=== PATIENT | male | born 1980 ===

== ENCOUNTER 2016-08-27 09:47 | Inpatient (IN) | payer BC, OTHER ==
[~2016-08-27] VITALS: Ht 154.9 cm; Wt 65.8 kg
[2016-08-30 12:13] LABS: *AMPHETAMINE, URINE POSITIVE (NEGATIVE); *BARBITURATE, URINE NEGATIVE (NEGATIVE); *CANNABINOID, URINE NEGATIVE (NEGATIVE); *COCCAINE, URINE NEGATIVE (NEGATIVE); *OPIATE, URINE NEGATIVE (NEGATIVE); *PHENCYCLIDINE SCREEN,URINE NEGATIVE (NEGATIVE)
[2016-08-30 12:29] VITALS: BP 120/66
[2016-08-30] MEDS ORDERED: DICYCLOMINE HCL 20 MG TABLET PO PRN (12:30)
[2016-08-30] MEDS ORDERED: LORAZEPAM 1 MG TABLET PO PRN ×2 (12:30)
[2016-08-30] MEDS ORDERED: MAGNESIUM HYDROXIDE 30 ML LIQUID UDC PO PRN (12:30)
[2016-08-30] MEDS ORDERED: THIAMINE HCL 200 MG/2 ML VIAL IM ONE (12:30)
[2016-08-30] MEDS ORDERED: LORAZEPAM 2 MG/1 ML VIAL IM PRN (12:30)
[2016-08-30] MEDS ORDERED: HYDROXYZINE PAMOATE 25 MG CAPSULE PO PRN (12:30)
[2016-08-30] MEDS ORDERED: CLONIDINE HCL 0.1 MG TABLET PO PRN (12:30)
[2016-08-30] MEDS ORDERED: ONDANSETRON ODT 4 MG TAB.RAPDIS SL PRN (12:30)
[2016-08-30] MEDS ORDERED: PROMETHAZINE HCL 25 MG/1 ML VIAL IM PRN (12:30)
[2016-08-30] MEDS ORDERED: ACETAMINOPHEN 325 MG TABLET PO PRN (12:30)
[2016-08-30] MEDS ORDERED: MIRALAX 17 GM POWD.PACK PO PRN (12:30)
[2016-08-30] MEDS ORDERED: LOPERAMIDE HCL 2 MG CAPSULE PO PRN ×2 (12:30)
[2016-08-30] MEDS ORDERED: MAG HYDROX/AL HYDROX/SIMETH 30 ML LIQUID UDC PO PRN (12:30)
--- NOTE | 2016-08-30 13:00 | NUR ---
ADMISSION NOTE VS: BP: 120/66, HR:85, SpO2: 98%, RR: 16, Temp: 97.9 Pain: 6/10 backache/headache Height: 5'2" Weight: 145 LB Allergies: ALEX Pt is a 35 y/o male admitted to [facility] on 08/30/16 at 1200. Pt is under the care of Dr. Sr for ETOH and Methamphetamine dependence. Pt denies suicidal and homicidal ideations at this time. Pt denies being hospitalized in the past 30 days. Pt denies Chest Pain and SOB. Pt reports no active medication/prescriptions. Upon assessment pt's skin is. CIWA is 17 upon admission. NKA, A/Ox4 and able to answer questions necessary for the admission process. Pt is Full Code. VS WNL, Regular Diet. Reports history of withdrawal induced seizures, last seizure being 1 week ago. Pt denies having a PCP. Breathing is even and unlabored, SpO2 is 98% on RA. Pt ambulates with a steady gait, pt looks restless, states he hasn't slept in a few days and has increased body movements. Pt has difficulty staying asleep. Pt reports Hx of treatment in 2007 at [facility] in [facility], and was sober from 2007- Jul 2016. Pt reports living alone. Pt refuses to get the Flu vaccine and PNA vaccine at this time. Pt reports smoking 2-[address] Sr has been notified, and has placed client on a 5 day Ativan taper. All needs have been met. Pt has been oriented to the room and the unit. All safety measures in place per hospital policy. Bed in lowest position, side rails up x2 and padded, call-light within reach. Will continue to monitor. Substance Abuse: ETOH: 18 cans of 16 oz beers daily for 1 froylan, last drink was "1 shot of whiskey" 08/30/16 at 0700 Crystal Meth: "$20 worth" for 1 month, last used on 08/29/16 at 1800.
[2016-08-30 13:19] VITALS: BP 120/66
[2016-08-30] MEDS: LORAZEPAM 1 MG TABLET PO SCH ×3 (13:23→21:22)
[2016-08-30] MEDS: IBUPROFEN 400 MG TABLET PO PRN (13:24)
[2016-08-30 17:32] LABS: BASOPHILS % (AUTO) 0.4 % (0.0-2.0); EOSINOPHILS # (AUTO) 0.1 K/uL (0.0-0.7); EOSINOPHILS % (AUTO) 1.6 % (0.0-7.0); HEMATOCRIT 41.5 % (40.0-50.0); HEMOGLOBIN 13.8 g/dL (14.0-18.0); LYMPHOCYTES # (AUTO) 2.7 K/uL (0.8-4.8); LYMPHOCYTES % (AUTO) 35.7 % (20.5-51.5); MEAN CORPUSCULAR HEMOGLOBIN 27.9 uug (27.0-31.0); MEAN CORPUSCULAR HGB CONC 33 g/dL (32.0-37.0); MEAN CORPUSCULAR VOLUME 84.1 fL (82.0-92.0); MONOCYTES # (AUTO) 0.5 K/uL (0.1-1.30); MONOCYTES % (AUTO) 6.1 % (0.0-11.0); NEUTROPHILS # (AUTO) 4.2 K/uL (1.8-8.9); NEUTROPHILS % (AUTO) 56.2 % (38.5-71.5); PLATELET COUNT (AUTO) 324 K/uL (150-450); RED BLOOD CELL COUNT(AUTO) 4.94 MIL/uL (4.70-6.10); RED CELL DISTRIBUTION WIDTH 12.3 % (11.5-14.5); WHITE BLOOD COUNT (AUTO) 7.5 K/uL (4.0-11.2)
[2016-08-30 17:50] LABS: ALANINE AMINOTRANSFERASE 31 U/L (16-63); ALBUMIN 3.4 g/dL (3.4-5.0); ALKALINE PHOSPHATASE 126 U/L (50-136); AMYLASE 34 U/L (25-115); ASPARTATE AMINOTRANSFERASE 20 U/L (15-37); BILIRUBIN,TOTAL 0.3 mg/dL (0.2-1.0); CALCIUM 8.8 mg/dL (8.5-10.1); CARBON DIOXIDE 24 mmol/L (21-32); CHLORIDE 100 mmol/L (98-107); GFR 84 mL/min (>60); LIPASE 148 U/L (73-393); POTASSIUM 3.9 mmol/L (3.5-5.1); SODIUM SERUM 137 mmol/L (136-145); TOTAL PROTEIN, SERUM 6.8 g/dL (6.4-8.2); UREA NITROGEN, BLOOD 14 mg/dL (7-18)
[2016-08-30 17:51] LABS: GLUCOSE 388 mg/dL (74-106)
[2016-08-30] MEDS ORDERED: INSULIN REGULAR, HUMAN 300 UNIT/3 ML VIAL SQ ONE (18:00)
[2016-08-30] MEDS ORDERED: INSULIN REGULAR, HUMAN 300 UNITS/3 ML VIAL SQ PRN (18:00)
[2016-08-30] MEDS ORDERED: DEXTROSE 50% 50 ML DISP.SYRIN IV PRN (18:00)
[2016-08-30 18:03] LABS: ETHANOL < 3 MG/DL (0-0)
[2016-08-30 18:12] VITALS: BP 116/70
--- NOTE | 2016-08-30 18:20 | NUR ---
COMMUNICATION/CRITICAL VALUE Critical lab value for glucose of 388 mg/dl. Dr. Sr made aware, order for 6 units of regular insulin once. Pt started on moderate sliding scale with accu check AC/HS.
[2016-08-30 18:34] LABS: THYROID STIMULATING HORMONE 0.849 mIU/mL (0.358-3.740)
--- NOTE | 2016-08-30 18:34 | NUR ---
PT EDUCATION Pt education provided on importance of diet compliance, and s/s of hyper/hypoglycemia. Insulin 6 units administered as ordered. Pt has dinner tray at bedside, and states he will eat it. Pt encouraged to make healthier food choice decisions and notify nurse of any changes.
[2016-08-30 18:46] LABS: HIV-1/2 ANTIBODY NON REACTIVE (NONREACTIVE)
[2016-08-30 18:47] LABS: HIV-1 p24 ANTIGEN NON REACTIVE (NONREACTIVE)
--- NOTE | 2016-08-30 19:10 | NUR ---
START OF SHIFT NOTE Pt. is 35 year old male patient admitted on 08/30/16 for ETOH and Crystal meth dependence. Denies medical history. Reports withdrawal induced seizures, last one was one week ago. NKA, Full Code, Diet will be re-evaluated on 08/31/2016, is on regular diet right now. Pt has been placed on a 5 day Ativan taper on 08/30/2016 and is tolerating well. Pt is A/O x4. RR even and unlabored. Per Dr. Sr order also started patient on AC/HS accu check with sliding scale. Pt is aware and verbalizes understanding. Pt education provided on importance of compliance. Most recent CIWA 7. All safety measures in place per hospital policy. Bed in lowest position, side rails up x2, call-light within reach. Will continue to monitor closely and offer help.
--- NOTE | 2016-08-30 19:15 | NUR ---
D/C NOTE Endorsed to overnight babysitter nurse. 35 year old male patient admitted on 08/30/16 for ETOH and Crystal meth dependence. Pt is A/O x4. Denies medical history. Reports withdrawal induced seizures, last one was one week ago. Pt remains seizure free throughout shift. Denies allergies. Pt has been placed on a 5 day Ativan taper and is tolerating well. RR even and unlabored. Lab test revealed glucose of 388. Per Dr. Sr order, 6 units of insulin one time provided. MD also started patient on AC/HS accu check with sliding scale. Pt is aware and verbalizes understanding. Pt education provided on importance of compliance. Most recent CIWA 7. V/S remain WNL and stable. Safety precautions are in place, side rails up x2 and padded, bed is locked and in lowest position. weatherization and housing inspector to continue to monitor.
[2016-08-30 20:00] VITALS: BP 100/67
--- NOTE | 2016-08-30 21:00 | NUR ---
INSULIN 10 Units SQ per Sliding Scale [id number]. Insulin Humulin 10 Units SQ given per SS as ordered.Safety measures in place : bed on lowest position with side rails x2 up for safety, call light within reach. Will continue to monitor closely and offer help.
[2016-08-30] MEDS: GABAPENTIN 300 MG CAPSULE PO SCH (21:22)
[2016-08-30] MEDS: BLOOD SUGAR DIAGNOSTIC 1 EACH STRIP VI SCH (21:38)
[2016-08-31] VITALS: BP 118/75
--- NOTE | 2016-08-31 06:57 | NUR ---
END OF SHIFT NOTE : Pt. is 35 year old male patient admitted on 08/30/16 for ETOH and Crystal meth dependence. Denies medical history. Reports withdrawal induced seizures, last one was one week ago. NKA, Full Code, Diet will be re-evaluated on 08/31/2016, is on regular diet right now. Pt has been placed on a 5 day Ativan taper on 08/30/2016 and is tolerating well. Pt is A/O x4. RR even and unlabored. Per Dr. Sr order also started patient on AC/HS accu check with sliding scale. Pt remains compliant with the treatment plan. Pt denies nausea, vomiting and diarrhea. PRN was Insulin SQ was given as ordered during my shift. V/S remain WNL. RR=16, even and unlabored, lungs clear upon auscultation, abdomen soft and non- distended. Pt denies nausea, vomiting and diarrhea. LAST CIWA= 3 at 0400 , INTAKE= 300 ml, voided x 1, slept 11 hours. Safety measures in place : bed on lowest position with side rails x2 up for safety, call light within reach. Will continue to monitor closely and offer help.
--- NOTE | 2016-08-31 07:10 | NUR ---
Start of Shift Report from the night nurse: pt is a Pt is 35 y.o male here for EtoH r/t eighteen 16oz cans per day and Crystal Meth $20.00 worth; 5 day Ativan taper ordered. Pt is a full code, NKA, regular diet, fall and seizure precautions. Hhx: seizure 1 week ago r/t Etoh w/d's and relapse. Pt is dx'd while here with DM-2 and has a Humulin R insulin order with moderate sliding scale AC/HS with last BG 353 with 10 Units given by the night nurse. V/S stable. Skin is intact. Last CIWA 3. No new orders endorsed by the night nurse. Pt is in room asleep. Will cont. to monitor the pt.
[2016-08-31 07:27] LABS: CALCIUM 8.8 mg/dL (8.5-10.1); CARBON DIOXIDE 30 mmol/L (21-32); CHLORIDE 104 mmol/L (98-107); CREATININE 0.6 mg/dL (0.6-1.3); GFR > 130 mL/min (>60); GLUCOSE 255 mg/dL (74-106); POTASSIUM 4.2 mmol/L (3.5-5.1); SODIUM SERUM 140 mmol/L (136-145); UREA NITROGEN, BLOOD 18 mg/dL (7-18)
[2016-08-31 08:00] VITALS: BP 105/66
[2016-08-31] MEDS: BLOOD SUGAR DIAGNOSTIC 1 EACH STRIP VI SCH ×4 (08:12→20:29)
[2016-08-31] MEDS: INSULIN REGULAR, HUMAN 300 UNIT/3 ML VIAL SQ PRN ×3 (08:14→17:25)
[2016-08-31] MEDS: THIAMINE HCL 100 MG TABLET PO SCH (08:40)
[2016-08-31] MEDS: GABAPENTIN 300 MG CAPSULE PO SCH ×2 (08:40→21:03)
[2016-08-31] MEDS: FOLIC ACID 1 MG TABLET PO SCH (08:40)
[2016-08-31] MEDS: LORAZEPAM 1 MG TABLET PO SCH ×3 (08:40→21:03)
[2016-08-31] MEDS ORDERED: TUBERCULIN,PURIF.PROT.DERIV. 5 TU/0.1 ML TEST ID ONE (09:00)
[2016-08-31] MEDS: MULTIVITAMINS,THERAPEUTIC TABLET PO SCH (09:47)
[2016-08-31 12:00] VITALS: BP 118/67
--- NOTE | 2016-08-31 15:09 | NUR ---
New Orders-DM Meds New orders for Scheduled PO Glipizide & Metformin and SubQ Levemir.
[2016-08-31 16:00] VITALS: BP 127/76
[2016-08-31] MEDS: glipiZIDE 5 MG TABLET PO SCH (17:27)
[2016-08-31] MEDS: METFORMIN HCL 500 MG TABLET PO SCH (18:31)
--- NOTE | 2016-08-31 19:27 | NUR ---
End of Shift Report to the night nurse: Pt is 35 y.o male here for EtoH r/t eighteen 16oz cans per day and Crystal Meth $20.00 worth; 5 day Ativan taper ordered. Pt is a full code, NKA, CCHO diet, fall and seizure precautions. Hhx: seizure 1 week ago r/t Etoh w/d's and relapse. Pt is dx'd while here with DM-2 and has a Humulin R insulin order with moderate sliding scale AC/HS with last BG 305 with 15 Units given and new orders for PO hypoglycemic medication regimen given as ordered during my shift. V/S stable. Skin is intact. No PRN mediations given. Last CIWA 2.
[2016-08-31 20:00] VITALS: BP 112/62
--- NOTE | 2016-08-31 20:00 | NUR ---
Start of Shift Pt is a 35 year old male admitted on 08/30/2016 for ETOH Dependence, placed on 5 day Ativan taper. Pt reported consuming beer 18 cans of 16oz/daily. Pt also reported using Crystal Meth $20 worth for 1 month. NKA, Diabetic/NCS diet, fall/seizure precautions and full code. PMH: DM II and Withdrawal induce seizure last seizure 1 week ago. Pt is placed on Levemir 10units at 2100, AC/HS accu check with sliding scale. Upon assessment, pt reports feeling fatigued, skin noted to be flushed/clammy, tremors felt upon touch, respirations even and unlabored, denies SOB/chest pain, denies n/v/d, skin warm, moist and intact, bowel sounds active x4, abdomen soft. Safety measures in place, call light within reach, side rails up x2, bed locked and in low position. Will continue to monitor.
[2016-08-31] MEDS ORDERED: INSULIN DETEMIR 300 UNIT/3 ML CARTRIDGE SQ SCH (21:00)
[2016-08-31] MEDS ORDERED: INSULIN GLARGINE,HUM 300 UNITS/3 ML CARTRIDGE SQ SCH (21:00)
--- NOTE | 2016-08-31 21:00 | NUR ---
BS and Insulin BS 270 Scheduled Levemir 10units and Humulin R 6units administered per sliding scale as ordered. Safety measures in place, call light within reach, side rails up x2, bed locked and in low position. Will continue to monitor.
[2016-09-01] VITALS: BP 121/77
--- NOTE | 2016-09-01 | NUR ---
Vital Signs BP 121/77, Pulse 78, respirations 14, Spo2 98%, temp 97.7 and 0/10 pain. CIWA assessment deferred d/t pt sleeping - to assess while pt is awake as ordered. Pt is sleeping, no s/s of distress noted, respirations even and unlabored. Safety measures in place, call light within reach, side rails up x2, bed locked and in low position. Will continue to monitor.
[2016-09-01 04:00] VITALS: BP 110/72
--- NOTE | 2016-09-01 04:00 | NUR ---
Vital Signs BP 110/72, Pulse 74, respirations 16, Spo2 97%, temp 98.1 and 0/10 pain. CIWA assessment deferred d/t pt sleeping - to assess while pt is awake as ordered. Pt is sleeping, no s/s of distress noted, respirations even and unlabored. Safety measures in place, call light within reach, side rails up x2, bed locked and in low position. Will continue to monitor.
--- NOTE | 2016-09-01 07:00 | NUR ---
End of Shift Pt is a 35 year old male admitted on 08/30/2016 for ETOH Dependence, placed on 5 day Ativan taper. Pt reported consuming beer 18 cans of 16oz/daily. Pt also reported using Crystal Meth $20 worth for 1 month. NKA, Diabetic/NCS diet, fall/seizure precautions and full code. PMH: DM II and Withdrawal induce seizure last seizure 1 week ago. During shift, BS 270, scheduled Levemir 10units and Humulin R 6 units administered per sliding scale orders. Pt presented with tremors felt upon touch, fatigue and skin flush/clammy scheduled taper medications administered, CIWA 3. No PRN medications administered. VS stable, Pt slept for 11 hours, intake of 500 ml PO and voids x1. Safety measures in place, call light within reach, side rails up x2, bed locked and in low position. Endorsed to day shift nurse.
--- NOTE | 2016-09-01 07:20 | NUR ---
Start of Shift Report from the night nurse: Pt is 35 y.o male here for EtoH r/t eighteen 16oz cans per day and Crystal Meth $20.00 worth; 5 day Ativan taper ordered. Pt is a full code, NKA, regular diet, fall and seizure precautions. Hhx: seizure 1 week ago r/t Etoh w/d's and relapse. Pt is dx'd while here with DM-2 and has a Humulin R insulin order with moderate sliding scale AC/HS with last BG 270 with 6 Units given by the night nurse. V/S stable. Skin is intact. Last CIWA 3. No new orders endorsed by the night nurse. Pt is in room asleep. Will cont. to monitor the pt.
[2016-09-01 07:29] LABS: FOLIC ACID 10.4 NG/ML (8.6-58.9); IRON, SERUM 79 ug/dL (50-175)
[2016-09-01 07:38] LABS: CALCIUM 8.2 mg/dL (8.5-10.1); CARBON DIOXIDE 31 mmol/L (21-32); CHLORIDE 106 mmol/L (98-107); CHOLESTEROL 248 mg/dL (<200); CREATININE 0.6 mg/dL (0.6-1.3); GFR > 130 mL/min (>60); GLUCOSE 245 mg/dL (74-106); HDL CHOLESTEROL 34 mg/dL (40-60); SODIUM SERUM 141 mmol/L (136-145); TRIGLYCERIDES 224 MG/DL (30-150); UREA NITROGEN, BLOOD 21 mg/dL (7-18)
[2016-09-01 08:00] VITALS: BP 118/91
[2016-09-01] MEDS: glipiZIDE 5 MG TABLET PO SCH (08:20)
[2016-09-01] MEDS: BLOOD SUGAR DIAGNOSTIC 1 EACH STRIP VI SCH ×4 (08:23→21:27)
[2016-09-01] MEDS: INSULIN REGULAR, HUMAN 300 UNIT/3 ML VIAL SQ PRN ×2 (08:26→12:15)
[2016-09-01] MEDS: FOLIC ACID 1 MG TABLET PO SCH (08:26)
[2016-09-01] MEDS: GABAPENTIN 300 MG CAPSULE PO SCH ×3 (08:27→21:32)
[2016-09-01] MEDS: MULTIVITAMINS,THERAPEUTIC TABLET PO SCH (08:27)
[2016-09-01] MEDS: LORAZEPAM 1 MG TABLET PO SCH ×4 (08:27→21:32)
[2016-09-01] MEDS: METFORMIN HCL 500 MG TABLET PO SCH ×2 (08:27→17:25)
[2016-09-01] MEDS: THIAMINE HCL 100 MG TABLET PO SCH (08:27)
[2016-09-01 12:00] VITALS: BP 118/81
[2016-09-01] MEDS ORDERED: DEXTROSE 50% 50 ML DISP.SYRIN IV PRN (13:45)
[2016-09-01 15:09] LABS: HCV AB <0.1 s/co ratio (0.0-0.9); HEPATITIS B CORE AB, IgM Negative (Negative); HEPATITIS B SURFACE AG Negative (Negative)
[2016-09-01 16:00] VITALS: BP 114/64
[2016-09-01] MEDS: glipiZIDE 10 MG TABLET PO SCH (16:01)
[2016-09-01] MEDS ORDERED: glipiZIDE 5 MG TABLET PO SCH (16:30)
--- NOTE | 2016-09-01 16:55 | NUR ---
New Order New order for modified Levemir increased from 10 Units HS to 14Units HS.
--- NOTE | 2016-09-01 19:57 | NUR ---
End of Shift Report to the night nurse: Pt is 35 y.o male here for EtoH r/t eighteen 16oz cans per day and Crystal Meth $20.00 worth; 5 day Ativan taper ordered. Pt is a full code, NKA, CCHO diet, fall and seizure precautions. Hhx: seizure 1 week ago r/t Etoh w/d's and relapse. Pt is dx'd while here with DM-2 and has a Humulin R insulin order with moderate sliding scale AC/HS with last BG 213 with 8Units given and new orders for modified increase dose of Levemir HS, medication regimen given as ordered during my shift. V/S stable. Skin is intact. No PRN mediations given. Last CIWA 3.
[2016-09-01 20:00] VITALS: BP 136/82
--- NOTE | 2016-09-01 20:00 | NUR ---
Start of Shift Pt is a 35 year old male admitted on 08/30/2016 for ETOH Dependence, placed on 5 day Ativan taper. Pt reported consuming beer 18 cans of 16oz/daily. Pt also reported using Crystal Meth $20 worth for 1 month. NKA, Diabetic/NCS diet, fall/seizure precautions and full code. PMH: DM II and Withdrawal induce seizure last seizure 1 week ago. Pt is placed on Levemir 14 units at 2100, AC/HS accu check with sliding scale. Upon assessment, pt reports feeling fatigued, skin noted to be flushed, respirations even and unlabored, denies SOB/chest pain, denies n/v/d, skin warm, moist and intact, bowel sounds active x4, abdomen soft. Safety measures in place, call light within reach, side rails up x2, bed locked and in low position. Will continue to monitor
[2016-09-01] MEDS ORDERED: INSULIN DETEMIR 300 UNIT/3 ML CARTRIDGE SQ SCH (21:00)
--- NOTE | 2016-09-01 21:00 | NUR ---
BS and Insulin BS 333 Scheduled Levemir 14 units and Humulin R 8 units administered per sliding scale as ordered. Safety measures in place, call light within reach, side rails up x2, bed locked and in low position. Will continue to monitor.
[2016-09-01] MEDS: ATORVASTATIN 10 MG TABLET PO SCH (21:31)
[2016-09-01] MEDS: INSULIN REGULAR, HUMAN 300 UNITS/3 ML VIAL SQ PRN (21:37)
[2016-09-01] MEDS: diphenhydrAMINE 50 MG CAPSULE PO PRN (22:32)
--- NOTE | 2016-09-01 22:32 | NUR ---
PRN Administration Pt requested aid to help him sleep. Benadryl 50mg PRN administered. Safety measures in place, call light within reach, side rails up x2, bed locked and in low position. Will continue to monitor.
--- NOTE | 2016-09-01 23:32 | NUR ---
PRN Reassessment Upon reassessment, pt is sleeping, medication effective. Respirations even and unlabored, no s/s of distress noted. Safety measures in place, call light within reach, side rails up x2, bed locked and in low position. Will continue to monitor.
--- NOTE | 2016-09-02 | NUR ---
Pt refused to be woken for 0000 VS CIWA assessment deferred d/t pt sleeping - to assess while pt is awake as ordered. Pt is sleeping, no s/s of distress noted, respirations even and unlabored. Safety measures in place, call light within reach, side rails up x2, bed locked and in low position. Will continue to monitor.
--- NOTE | 2016-09-02 04:00 | NUR ---
Pt refused to be woken for 0400 VS CIWA assessment deferred d/t pt sleeping - to assess while pt is awake as ordered. Pt is sleeping, no s/s of distress noted, respirations even and unlabored. Safety measures in place, call light within reach, side rails up x2, bed locked and in low position. Will continue to monitor.
--- NOTE | 2016-09-02 07:00 | NUR ---
End of Shift Pt is a 35 year old male admitted on 08/30/2016 for ETOH Dependence, placed on 5 day Ativan taper. Pt reported consuming beer 18 cans of 16oz/daily. Pt also reported using Crystal Meth $20 worth for 1 month. NKA, Diabetic/NCS diet, fall/seizure precautions and full code. PMH: DM II and Withdrawal induce seizure last seizure 1 week ago. During shift, BS 333 - Scheduled Levemir 14 units and Humulin R 8 units administered per sliding scale as ordered. Pt presented with fatigue, skin noted to be flushed/clammy, scheduled taper medications administered, CIWA 3. Benadryl 50mg PRN administered, effective. VS stable, Pt slept for 8 hours, intake of 1400 ml PO and voids x 1. Safety measures in place, call light within reach, side rails up x2, bed locked and in low position. Endorsed to day shift nurse.
--- NOTE | 2016-09-02 07:30 | NUR ---
START OF SHIFT Received report from overnight associate nurse. 35 year old male patient admitted on 08/30/16 for ETOH and Crystal meth dependence. Pt is A/O x4. Pt has been diagnosed with diabetes type II and started on oral medications and insulin. Glucose is being managed. Reports withdrawal induced seizures. Pt remains seizure free throughout shift. Denies allergies. Pt has been placed on a 5 day Ativan taper and is tolerating well. RR even and unlabored. Pt education provided on importance of compliance. Most recent CIWA 3. V/S remain WNL and stable. Safety precautions are in place, side rails up x2 and padded, bed is locked and in lowest position. PRN Benadryl administered and effective. Pt slept for 8 hours. Will continue to monitor.
[2016-09-02] MEDS: glipiZIDE 10 MG TABLET PO SCH ×2 (07:43→16:55)
[2016-09-02] MEDS: BLOOD SUGAR DIAGNOSTIC 1 EACH STRIP VI SCH ×4 (07:45→21:44)
[2016-09-02] MEDS: INSULIN REGULAR, HUMAN 300 UNIT/3 ML VIAL SQ PRN ×3 (08:17→16:58)
[2016-09-02] MEDS: FOLIC ACID 1 MG TABLET PO SCH (08:18)
[2016-09-02] MEDS: MULTIVITAMINS,THERAPEUTIC TABLET PO SCH (08:18)
[2016-09-02] MEDS: GABAPENTIN 300 MG CAPSULE PO SCH ×3 (08:18→21:27)
[2016-09-02] MEDS: ASPIRIN 81 MG TAB.CHEW PO SCH (08:18)
[2016-09-02] MEDS: LORAZEPAM 1 MG TABLET PO SCH ×3 (08:18→21:27)
[2016-09-02] MEDS: METFORMIN HCL 500 MG TABLET PO SCH ×2 (08:18→18:47)
[2016-09-02] MEDS: THIAMINE HCL 100 MG TABLET PO SCH (08:18)
[2016-09-02 10:03] VITALS: BP 106/69
[2016-09-02 13:10] VITALS: BP 112/81
--- NOTE | 2016-09-02 13:29 | NUR ---
Endorsed patient Endorsed patient to nurse who will resume care. All pertinent information was endorsed.
--- NOTE | 2016-09-02 13:30 | NUR ---
Endorsement received from Ila VALIENTE
[2016-09-02] MEDS ORDERED: NORT10CA PO (14:03)
[2016-09-02] MEDS: ESCITALOPRAM OXALATE 10 MG TABLET NG SCH (14:49)
[2016-09-02 16:00] VITALS: BP 126/79
--- NOTE | 2016-09-02 19:27 | NUR ---
End of Shift Endorsement received from nightshift nurse. Pt is a 35 y/o male admitted for alcohol dependence. Pt is on a 5 day Ativan taper. Pt is toelrating taper well AEB CIWA 2. Intake 1790, Void x4, BM x0. VS WNL, Full Code. PT is alert and oriented x4. Pt is in STABLE condition at this time. Remains compliant with medication and diet regimen. All needs have been met, All safety measures in place per hospital policy. Bed in lowest position, side rails up x2, call-light within reach. Will continue to monitor
--- NOTE | 2016-09-02 19:50 | NUR ---
START OF SHIFT NOTE Received report from day shift nurse. Pt is 35 y o male, admitted on 08/30/16 for ETOH and crystal methamphetamine dependence. Pt reported drinking 18x 16oz cans of beer daily for 1 months and "$20 worth" of crystal meth daily for 1 month. Pt placed on 5 day Ativan taper started 08/30/16. Pt aaox4, cooperative. Pt reports mild anxiety, states medication help to control anxiety levels. Skin intact, warm, with minimal sweating over the face. No tremors noted, pt denies tingling/ itching/ numbing. Lung sounds clear, heart rate regular. Abdominal sounds active x 4, pt denies n/v/d. Pt denies urinary difficulties. PMH of withdrawal induced seizure. Pt was newly diagnosed with DM 2, receives Glucotrol 10 mg BID PO, Glucophage 1,000 mg PO BID, is on ACHS Accucheck, has sliding scale Humulin R for AC PRN, sliding scale Humulin R for HS prn, has Levemir 18 units HS scheduled. Pt is NKA, full code, on consistent carb diet. Pt is on seizure and fall precautions. Side rails up x 2, bed locked in lowest position, call light within reach. Will continue with plan of care.
[2016-09-02 20:00] VITALS: BP 141/90
[2016-09-02] MEDS: ATORVASTATIN 10 MG TABLET PO SCH (21:27)
[2016-09-02] MEDS: INSULIN DETEMIR 300 UNIT/3 ML CARTRIDGE SQ SCH (21:39)
[2016-09-02] MEDS: INSULIN REGULAR, HUMAN 300 UNITS/3 ML VIAL SQ PRN (21:41)
--- NOTE | 2016-09-02 21:45 | NUR ---
PRN HUMULIN R HS Upon accucheck, FSBS = 191 mg/dL; administered Humulin R 3 units to abdomen subcutaneously as ordered per sliding scale. Pt encouraged to eat a snack in 45 min -1 hr. Pt verbalized understanding. Side rails up x 2, bed locked in lowest position, call light within reach. Will continue to monitor
--- NOTE | 2016-09-02 22:15 | NUR ---
RN NOTE Pt comes to nursing station, c/o dizziness. Assisted to room, place supine HOB 90 degrees. Pt presents with sweats, tremors of hands, c/o dizziness, dry mouth, tingling of lips and fingers. VS: temp 97.8, RR 18, HR 102, BP 137/85, SpO2 99%. notified, received order to accucheck one time stat. Accucheck done, FSBS = 151 mg/dL. Pt states he ate a granola bar 5 min before dizziness developed; notified, NNO. Pt given orange juice 6 oz. Cont to monitor VS and patients s/s
[2016-09-02] MEDS ORDERED: BLOOD SUGAR DIAGNOSTIC 1 EACH STRIP VI ONE (22:30)
--- NOTE | 2016-09-02 22:30 | NUR ---
RN NOTE, PRN ZOFRAN Pt c/o lightheadedness, but mentioned that he feels "better". Pt reports nausea. Administered Zofran ODT prn as ordered. VS: BP 137/87, HR 99, RR 16, SpO2 98%, temp 98.5.
--- NOTE | 2016-09-02 22:49 | NUR ---
RN NOTE, REASSESSMENT Pt states s/s subsided. Pt denies pain or dizziness or discomfort. Pt was able to tolerate PO 6 oz of orange juice, RR unlabored, skin dry, warm, color consistent. BP 135/74, HR 87, RR 17, SpO2 97%. Pt observed with changing position from lying to sitting to standing; pt observed with steady gait, no c/o lightheadedness or dizziness. Will continue to monitor pt
[2016-09-03] VITALS: BP 121/80
[2016-09-03 04:00] VITALS: BP 112/67
--- NOTE | 2016-09-03 07:05 | NUR ---
Start of Shift Endorsement received from nightshift nurse. Pt is a 35 y/o male admitted for alcohol dependence. Pt is on a 5 day Ativan taper. Pt is tolerating taper well AEB CIWA 2. Pt reports sleeping 6 hours. Pt received PRN Zofran for nausea. VS WNL, Full Code. PT is alert and oriented x4. Pt is in STABLE condition at this time. Remains compliant with medication and diet regimen. All needs have been met, All safety measures in place per hospital policy. Bed in lowest position, side rails up x2, call-light within reach. Will continue to monitor
--- NOTE | 2016-09-03 07:41 | NUR ---
END OF SHIFT NOTE Pt is 35 y o male, admitted on 08/30/16 for ETOH and crystal methamphetamine dependence. Pt reported drinking 18x 16oz cans of beer daily for 1 months and "$20 worth" of crystal meth daily for 1 month. Pt placed is on day 5 of 5 day Ativan taper started 08/30/16. . Pt was newly diagnosed with DM 2, receives Glucotrol 10 mg BID PO, Glucophage 1,000 mg PO BID, is on ACHS Accucheck, has sliding scale Humulin R for AC PRN, sliding scale Humulin R for HS prn, has Levemir 18 units HS scheduled. Pt had FSBS 191 HS, was administered ordered levemir 18 units and Humulin 3 unites per sliding scale. At 2215, pt rerpoted dizziness, tingling, sweats, shaking, nausea. MD was notified, one-time accucheck was done and resulted 151 mg/ dL. Pt was given 6 oz of orange juice, pt reported relief of s/s by 2250. Pt was given prn Zofran at 2230, was effective. VS remained stable throughout the shift. Pt received all scheduled medications for withdrawal; last CIWA 2 d/t mild anxiety and sweating. Pt slept for 6hrs; PO intake 355 ml, urination x 1, BM x 1. Pt is NKA, full code, on consistent carb diet. Pt is on seizure and fall precautions. Report endorsed to day shift nurse.
[2016-09-03] MEDS: glipiZIDE 10 MG TABLET PO SCH ×2 (07:51→16:58)
[2016-09-03] MEDS: BLOOD SUGAR DIAGNOSTIC 1 EACH STRIP VI SCH ×4 (07:54→20:25)
[2016-09-03] MEDS: INSULIN REGULAR, HUMAN 300 UNIT/3 ML VIAL SQ PRN ×2 (07:55→16:59)
[2016-09-03 08:01] VITALS: BP 125/83
[2016-09-03] MEDS: MULTIVITAMINS,THERAPEUTIC TABLET PO SCH (08:40)
[2016-09-03] MEDS: GABAPENTIN 300 MG CAPSULE PO SCH ×3 (08:40→20:20)
[2016-09-03] MEDS: METFORMIN HCL 500 MG TABLET PO SCH ×2 (08:40→18:38)
[2016-09-03] MEDS: ASPIRIN 81 MG TAB.CHEW PO SCH (08:40)
[2016-09-03] MEDS: THIAMINE HCL 100 MG TABLET PO SCH (08:40)
[2016-09-03] MEDS: LORAZEPAM 1 MG TABLET PO SCH ×2 (08:40→20:21)
[2016-09-03] MEDS: FOLIC ACID 1 MG TABLET PO SCH (08:40)
[2016-09-03] MEDS: ESCITALOPRAM OXALATE 10 MG TABLET NG SCH (08:40)
[2016-09-03] MEDS ORDERED: BLOOD SUGAR DIAGNOSTIC 1 EACH STRIP VI ONE (09:30)
[2016-09-03 10:38] LABS: CALCIUM 9.2 mg/dL (8.5-10.1); CREATININE 0.9 mg/dL (0.6-1.3); MAGNESIUM 1.6 mg/dL (1.8-2.4); PHOSPHOROUS 3.4 mg/dL (2.5-4.9); POTASSIUM 4.4 mmol/L (3.5-5.1)
[2016-09-03] MEDS ORDERED: MAGNESIUM OXIDE 400 MG TABLET PO ONE (11:30)
[2016-09-03 12:00] VITALS: BP 106/75
[2016-09-03 16:00] VITALS: BP 120/86
--- NOTE | 2016-09-03 19:28 | NUR ---
End of Shift Endorsement received from nightshift nurse. Pt is a 35 y/o male admitted for alcohol dependence. Pt is on a 5 day Ativan taper. Pt is tolerating taper well AEB CIWA 2.Pt Participated in groups and activities, no PRN medications were administered. Intake 2100, Void x4, BM x0. VS WNL, Full Code. PT is alert and oriented x4. Pt is in STABLE condition at this time. Remains compliant with medication and diet regimen. All needs have been met, All safety measures in place per hospital policy. Bed in lowest position, side rails up x2, call-light within reach. Will continue to monitor
--- NOTE | 2016-09-03 19:50 | NUR ---
START OF SHIFT NOTE Received report from day shift nurse. Pt is 35 y o male, admitted on 08/30/16 for ETOH and crystal methamphetamine dependence. Pt reported drinking 18x 16oz cans of beer daily for 1 months and using "$20 worth" of crystal meth daily for 1 month. Pt placed on 5 day Ativan taper started 08/30/16. PMH of withdrawal induced seizure. Pt is on seizure and fall precautions. Pt is newly diagnosed with DM 2, receives Glucotrol 10 mg BID PO, Glucophage 1,000 mg PO BID, is on ACHS Accucheck, has sliding scale Humulin R for AC PRN, sliding scale Humulin R for HS PRN, has Levemir 18 units HS scheduled. Pt is NKA, full code, on consistent carb diet. Pt educated on importance of proper diet and exercises for DM2 management. Pt verbalized understanding, additional education required. Pt aaox4, ambulating around hallway. Pt reports moderate anxiety, noted with deep, fast breathing pattern; pt educated on and encouraged to use deep breathing exercises when he feels anxious, return demonstration provided by pt. Skin intact, warm, with moderate sweating over the face. No tremors noted, pt denies tingling/ itching/ numbing. Lung sounds clear, heart rate regular. Last BM 09/04/15, pt denies n/v/d. Pt denies urinary difficulties. Side rails up x 2, bed locked in lowest position, call light within reach. Will continue with plan of care.
[2016-09-03 20:00] VITALS: BP 133/83
[2016-09-03] MEDS: ATORVASTATIN 10 MG TABLET PO SCH (20:21)
[2016-09-03] MEDS: INSULIN DETEMIR 300 UNIT/3 ML CARTRIDGE SQ SCH (20:26)
[2016-09-03] MEDS: INSULIN REGULAR, HUMAN 300 UNITS/3 ML VIAL SQ PRN (20:29)
--- NOTE | 2016-09-03 20:29 | NUR ---
PRN HS HUMULIN INSULIN FSBS = 202 mg/dL, administered Humulin R 4 units per sliding scale protocol. Pt encouraged to eat a snack in 30 min - 90 min; pt instructed to call nurse if feels tremors, sweats, anxiety, tingling, lightheadedness. Fall and seizure precautions in place. Will continue to monitor
[2016-09-03] MEDS: diphenhydrAMINE 50 MG CAPSULE PO PRN (22:46)
--- NOTE | 2016-09-03 22:46 | NUR ---
PRN BENADRYL Pt reports insomnia. Administered Benadryl 50 mg PO prn as ordered. Side rails up x 2, bed locked in lowest position, call light within reach. Will continue to monitor
--- NOTE | 2016-09-04 | NUR ---
VS, BENTON; PRN BENADRYL REASSESSMENT Pt refused VS assessment, states "Please let me sleep". RR even and unlabored, at 16 breaths per minute. Risks and benefits explained, pt still refused. BENTON deferred d/t pt being asleep. Side rails up x2, call light within reach, bed locked in lowest position. Will continue to monitor Addendum: 09/04/16 at 0502 by SAVANAH VELA RN Amended: Links added.
[2016-09-04 03:01] LABS: *AMPHETAMINE Positive (.); *METHAMPHETAMINE Positive (.)
--- NOTE | 2016-09-04 04:00 | NUR ---
VS, BENTON Pt refused VS assessment, states "Please let me sleep". RR even and unlabored, at 16 breaths per minute. Risks and benefits explained, pt still refused. BENTON deferred d/t pt being asleep. Side rails up x2, call light within reach, bed locked in lowest position. Will continue to monitor Addendum: 09/04/16 at 0502 by SAVANAH VELA RN Amended: Links added.
[2016-09-04] MEDS: BLOOD SUGAR DIAGNOSTIC 1 EACH STRIP VI SCH ×4 (07:37→20:36)
[2016-09-04] MEDS: glipiZIDE 10 MG TABLET PO SCH ×2 (07:38→16:36)
--- NOTE | 2016-09-04 07:39 | NUR ---
END OF SHIFT NOTE Pt is 35 y o male, admitted on 08/30/16 for ETOH and crystal methamphetamine dependence. Pt reported drinking 18x 16oz cans of beer daily for 1 months and using "$20 worth" of crystal meth daily for 1 month. Pt completed 5 day Ativan taper started 08/30/16. Pt presented with anxiety, sweats, tingling. Taper medication was given as ordered. Pt verbalized anxiety r/t new dx of DM2. Pt education was provided. Pt receives Glucotrol 10 mg BID PO, Glucophage 1,000 mg PO BID, is on ACHS Accucheck, has sliding scale Humulin R for AC PRN, sliding scale Humulin R for HS PRN, has Levemir 18 units HS scheduled. Pt is NKA, full code, on consistent carb diet. Pt FSBS was 202 at 2028, pt received prn HS Humulin R 4 units subcutaneously per sliding scale order. Prn benadryl was given for sleep and was effective, pt slept for 7 hrs. AGUEDA intake 1210, urination x2, BM x 1. Pt in bed, sleeping. Report endorsed to day shift. Addendum: 09/04/16 at 0741 by SAVANAH VELA RN Last [facility] 6, pt received scheduled Ativan as part of taper.
--- NOTE | 2016-09-04 07:40 | NUR ---
START OF SHIFT NOTE: Received report from overnight babysitter nurse. Pt is a 35 yo male admitted 08-30-26 for ETOH and meth dependence. Pt completed a 5 day Ativan taper. Pt is a Type 2 diabetic. Pt is alert and oriented X4. Color good, skin warm and dry. Respirations even and unlabored. Pt resting in bed at this time. Safety precautions observed. Call light within reach. Will continue to monitor.
[2016-09-04] MEDS: INSULIN REGULAR, HUMAN 300 UNIT/3 ML VIAL SQ PRN ×3 (07:42→16:39)
--- NOTE | 2016-09-04 07:49 | NUR ---
Santos 162. 2 units of regular Humulin insulin administered LD.
[2016-09-04 08:00] VITALS: BP 112/85
[2016-09-04] MEDS: MULTIVITAMINS,THERAPEUTIC TABLET PO SCH (08:10)
[2016-09-04] MEDS: THIAMINE HCL 100 MG TABLET PO SCH (08:10)
[2016-09-04] MEDS: GABAPENTIN 300 MG CAPSULE PO SCH ×3 (08:10→20:57)
[2016-09-04] MEDS: ASPIRIN 81 MG TAB.CHEW PO SCH (08:10)
[2016-09-04] MEDS: ESCITALOPRAM OXALATE 10 MG TABLET NG SCH (08:10)
[2016-09-04] MEDS: METFORMIN HCL 500 MG TABLET PO SCH ×2 (08:10→18:04)
[2016-09-04] MEDS: FOLIC ACID 1 MG TABLET PO SCH (08:10)
[2016-09-04] MEDS: CHOLECALCIFEROL 1,000 UNIT TABLET PO SCH (08:11)
--- NOTE | 2016-09-04 11:48 | NUR ---
Accucheck 191 4units regular Humulin insulin administered LD
[2016-09-04 13:12] VITALS: BP 124/92
[2016-09-04 15:56] LABS: *AMPHETAMINE, URINE NEGATIVE (NEGATIVE); *BARBITURATE, URINE NEGATIVE (NEGATIVE); *CANNABINOID, URINE NEGATIVE (NEGATIVE); *COCCAINE, URINE NEGATIVE (NEGATIVE); *OPIATE, URINE NEGATIVE (NEGATIVE); *PHENCYCLIDINE SCREEN,URINE NEGATIVE (NEGATIVE)
--- NOTE | 2016-09-04 16:30 | NUR ---
Accucheck 181. 4 units regular Humulin insulin given per sliding scale.
[2016-09-04 17:40] VITALS: BP 125/70
[2016-09-04 18:13] LABS: *MICROALBUMIN, UR 27.4 ug/mL (Not Estab.); CREATININE, URINE 43.6 mg/dL (Not Estab.); MICROALBUMIN/CREAT RATIO, UR 62.8 mg/g creat (0.0-30.0)
--- NOTE | 2016-09-04 18:44 | NUR ---
END OF SHIFT NOTE: Report given to third shift lieutenant nurse. Pt is a 35 yo male admitted 08-30-26 for ETOH and meth dependence. Pt completed a 5 day Ativan taper. Pt is a Type 2 Diabetic. Pt is alert and oriented X4. Color good, skin warm and dry. Respirations even and unlabored. Vital signs have remained stable throughout shift. Last CIWA 1 @ 1700. Last BS 181 @ 1630 . Safety precautions observed. Call light within reach.
[2016-09-04 20:00] VITALS: BP 134/77
--- NOTE | 2016-09-04 20:00 | NUR ---
1999 Patient received awake, alert and just returning back to his room # [id number] from [facility]. Gait is steady. Patient respond to nurse's greeting and introduction with a smile and " Hi". Patient's color is pink and his skin is warm, very slightly moist and intact. Patient is oriented to person, place, day, date, time and his situation. Patient's lung sounds are clear bilateral and active bowel sounds are noted X 4 abdominal Quads, per auscultation. Patient states that he has been consistently attending [facility] and has been compliant with his medication regimen and everything that has been asked of him since his admission to [facility]. Patient denies any pain presently and he offers no complaints, except to say that he is feeling a little anxious about his upcoming discharge from [facility] tomorrow. Patient states, " I got a lot of stuff I'm thinking about" Patient given calm reassurances and positive encouragement by nurse and then patient spoke to patient advocate, Javad for awhile. Vital signs are: 97.5-90-18 134/77, CIWA 2. Patient states that he continues to eat and take fluids ad geno with no gastric issues at this time. Patient moves all his extremities fully WNL. Fall/Seizure precautions continue. Bed is locked and in lowest position, bed rails are up X 1 and call light within patient's easy reach.
[2016-09-04] MEDS ORDERED: CHOL10002 PO (20:43)
[2016-09-04] MEDS ORDERED: Gabapentin PO (20:43)
[2016-09-04] MEDS ORDERED: Glipizide PO (20:43)
[2016-09-04] MEDS ORDERED: Metformin Hcl PO (20:43)
[2016-09-04] MEDS ORDERED: ASPI81TA31 PO (20:43)
[2016-09-04] MEDS ORDERED: ATOR10TA PO (20:43)
[2016-09-04] MEDS ORDERED: DIPH50CA37 PO (20:43)
[2016-09-04] MEDS ORDERED: ESCI10TA PO (20:43)
[2016-09-04] MEDS ORDERED: INSU100I19 SQ (20:43)
[2016-09-04] MEDS ORDERED: BLOO1EAC70 MC (20:45)
[2016-09-04] MEDS ORDERED: LANC1KIT MC (20:45)
[2016-09-04] MEDS: INSULIN DETEMIR 300 UNIT/3 ML CARTRIDGE SQ SCH (20:52)
[2016-09-04] MEDS: INSULIN REGULAR, HUMAN 300 UNITS/3 ML VIAL SQ PRN (20:54)
[2016-09-04 20:57] VITALS: BP 134/74
--- NOTE | 2016-09-04 20:57 | NUR ---
PRN MEDICATION: Prn Catapres 0.1 mg p.o. given for extreme restlessness, slight agitation and "feeling jumpy and nervous" I have a lot on my mind right now". CIWA 5.
[2016-09-04] MEDS: IBUPROFEN 400 MG TABLET PO PRN (20:58)
--- NOTE | 2016-09-04 20:58 | NUR ---
PRN MEDICATIONS : Prn Vistaril 25 mg p.o. given for patient's c/o increased anxiety, restlessness and "feeling jumpy", and Prn Motrin 400 mg p.o. given for c/o generalized body pain, 5/10 pain scale.
[2016-09-04] MEDS ORDERED: ATORVASTATIN 10 MG TABLET PO SCH (21:00)
--- NOTE | 2016-09-04 21:00 | NUR ---
BS reading is 247 per fingerstick. 4 units SQ Humulin R given into left upper arm, per sliding scale.
[2016-09-04] MEDS: diphenhydrAMINE 50 MG CAPSULE PO PRN (21:50)
--- NOTE | 2016-09-04 21:50 | NUR ---
PRN MEDICATION: Prn Benadryl 50 mg p.o. given per patient's request for sleep medication.
--- NOTE | 2016-09-04 21:58 | NUR ---
REASSESSMENT PRN MEDICATIONS: Patient is still awake, but his mood/affect is significantly calmer at this time and he denies any pain at this presently. Patient is quietly watching television while lying in his bed.
--- NOTE | 2016-09-04 22:50 | NUR ---
REASSESSMENT PRN MEDICATION: Patient is sleeping in low semi-fowlers position, with eyes closed and quiet, unlabored respirations noted at 14.
--- NOTE | 2016-09-05 06:30 | NUR ---
46524 Patient slept a total of 6 hours and he had 4 voids and 4 stools at bathroom. Total intake was 1,696 ml p.o. Prn medications given noted separately per floor protocol. V/SS afebrile, CIWA 2. Patient was admitted on 08/30/16 for Alcohol and Crystal Meth and 5-Day Ativan medication taper has been completed. Patient is to be discharged today. Patient is presently resting comfortably in stable condition with eyes closed and unlabored respirations noted at 14.
--- NOTE | 2016-09-05 07:30 | NUR ---
START OF SHIFT NOTE: Received report from cell phone repair technician nurse. Pt is a 35 yo male admitted 08-30-26 for ETOH and meth dependence. Pt completed a 5 day Ativan taper. To be discharged today. Pt is a Type 2 diabetic. Pt is alert and oriented X4. Color good, skin warm and dry. Respirations even and unlabored. Pt resting in bed at this time. Safety precautions observed. Call light within reach. Will continue to monitor.
[2016-09-05] MEDS: BLOOD SUGAR DIAGNOSTIC 1 EACH STRIP VI SCH (07:45)
[2016-09-05] MEDS: INSULIN REGULAR, HUMAN 300 UNIT/3 ML VIAL SQ PRN (07:48)
[2016-09-05] MEDS: glipiZIDE 10 MG TABLET PO SCH (07:49)
--- NOTE | 2016-09-05 07:55 | NUR ---
Accucheck 217. Regular Humulin insulin 8 units adminstered per sliding scale.
[2016-09-05] MEDS: ASPIRIN 81 MG TAB.CHEW PO SCH (08:15)
[2016-09-05] MEDS: CHOLECALCIFEROL 1,000 UNIT TABLET PO SCH (08:16)
[2016-09-05] MEDS: THIAMINE HCL 100 MG TABLET PO SCH (08:16)
[2016-09-05] MEDS: FOLIC ACID 1 MG TABLET PO SCH (08:16)
[2016-09-05] MEDS: METFORMIN HCL 500 MG TABLET PO SCH (08:16)
[2016-09-05] MEDS: ESCITALOPRAM OXALATE 10 MG TABLET NG SCH (08:16)
[2016-09-05] MEDS: GABAPENTIN 300 MG CAPSULE PO SCH (08:16)
[2016-09-05] MEDS: MULTIVITAMINS,THERAPEUTIC TABLET PO SCH (08:17)
--- NOTE | 2016-09-05 08:30 | NUR ---
VSS AM meds administered. Discharge papers signed. No home meds.
--- NOTE | 2016-09-05 09:43 | NUR ---
Pt discharged in stable condition with all valuables and belongings. No home meds. Pt denies SI/HI. To Able to Change via [employer] private car.
== END 2016-09-05 09:43 | disposition other institution (70) | DRG 895 ==
LOC: SRC 08-30 10:59
PROVIDERS: ADMIT Internal Medicine; ATTEND Internal Medicine
PROC: HZ2ZZZZ Detoxification Services for Substance Abuse Treatment (ICD-10-PCS; principal; 2016-08-30)
PROC: HZ41ZZZ Group Counseling for Substance Abuse Treatment, Behavioral (ICD-10-PCS; 2016-08-31)
PROC: HZ31ZZZ Individual Counseling for Substance Abuse Treatment, Behavioral (ICD-10-PCS; 2016-08-31)
DX: F10.230 Alcohol dependence with withdrawal, uncomplicated (principal); F15.20 Other stimulant dependence, uncomplicated; Y90.9 Presence of alcohol in blood, level not specified; E11.65 Type 2 diabetes mellitus with hyperglycemia; F32.9 Major depressive disorder, single episode, unspecified; F17.210 Nicotine dependence, cigarettes, uncomplicated; D64.9 Anemia, unspecified; E78.5 Hyperlipidemia, unspecified; E55.9 Vitamin D deficiency, unspecified; E83.42 Hypomagnesemia; F41.0 Panic disorder [episodic paroxysmal anxiety]; Z82.49 Family history of ischemic heart disease and other diseases of the circulatory system; Z83.3 Family history of diabetes mellitus; Z81.1 Family history of alcohol abuse and dependence; G47.00 Insomnia, unspecified; F43.23 Adjustment disorder with mixed anxiety and depressed mood
CPT/HCPCS: 36415; 70030-TC; 80307; 80324; 82043; 82306; 82570; 82746; 83550; 83690; 83735; 84100; 84443; 85025; 86580; 86592; 86705; 86803; 87340; 87806; 93005; A4663; G6040-TC; J1815; J3411; Q0162; Q0163